=== PATIENT | female | born 1995 | race American Indian/Alaskan Native ===

== ENCOUNTER 2019-01-20 15:39 | Emergency (ER) | payer OTHER ==
[2019-01-20 15:58] VITALS: BMI 22.3
[2019-01-20 16:01] VITALS: BP 123/86; PULSE 86; RESP 18; TEMP 98.2; O2SAT 100
[2019-01-20] MEDS ORDERED: Bacitracin 500 Units/gm Oint Foilpak UD TOP ONE (16:01)
[2019-01-20] MEDS ORDERED: Tetracaine 0.5% Ophth 2 ML BOTTLE OU ONE (16:06)
[2019-01-20] MEDS ORDERED: Bacitracin 500 Units/gm Oint Foilpak UD ONE (16:13)
[2019-01-20] MEDS ORDERED: Tetracaine 0.5% Ophth (OR ONLY) ONE (16:13)
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
== END 2019-01-20 16:51 | disposition home or self-care (01) ==
LOC: C.ER 15:39
DX: L53.9 Erythematous condition, unspecified (principal); T65.893A Toxic effect of other specified substances, assault, initial encounter